=== PATIENT | male | born 1990 | race Caucasian/White ===

== ENCOUNTER 2016-08-16 20:48 | Outpatient (CLI) ==
[2016-06-02 03:43] VITALS: BMI 25.7
== END 2016-08-16 20:49 ==
LOC: AMBL 20:48
PROVIDERS: ATTEND Family Medicine
DX: R45.851 Suicidal ideations (principal); F41.9 Anxiety disorder, unspecified

== ENCOUNTER 2016-09-01 22:27 | Outpatient (CLI) ==
[2016-09-01 23:06] VITALS: BMI 23.1
== END 2016-09-01 22:28 ==
LOC: AMBL 22:27
PROVIDERS: ATTEND Internal Medicine Geriatric Medicine
DX: R45.851 Suicidal ideations (principal); F10.10 Alcohol abuse, uncomplicated; R56.9 Unspecified convulsions; R00.0 Tachycardia, unspecified

== ENCOUNTER 2016-09-01 22:41 | Emergency (ER) ==
--- NOTE | 2016-09-01 23:01 | ED.PDOC ---
General ED Provider: Dr. SHAHANA CARLOS Chief Complaint: Seizure Stated Complaint: Patient is a 25 year old male who comes to the ER by EMS after he called them wanting to go to Psychiatric because has been depressed and states he is suicidal but with no plan. He states he is no longer suicidal just wants to talk to the counsellor. He has had recent deaths in his family. while on the way there he was noted to have a generalized tonic clonic seizure that lasted for one minute and the stopped. He was thus re-routed to to [place] Time Seen by Physician: 23:52 Mode of Arrival: Ambulance Information Source: Patient, Family Exam Limitations: No limitations Nursing and Triage Documentation Reviewed and Agree: Yes Review of Systems - Review Of Systems Constitutional: Reports: No symptoms Eyes: Reports: No symptoms Ears, Nose, Mouth, Throat: Reports: No symptoms Respiratory: Reports: No symptoms Cardiac: Reports: No symptoms GI: Reports: No symptoms : Reports: No symptoms Musculoskeletal: Reports: No symptoms Skin: Reports: No symptoms Neurological: Reports: Anxiety, Depressed, Emotional problems Endocrine: Reports: No symptoms Hematologic/Lymphatic: Reports: No symptoms All Other Systems: Reviewed and Negative Past Medical History - Past Medical History Previously Healthy: Yes Endocrine: Reports: None Cardiovascular: Reports: None Respiratory: Reports: Asthma Hematological: Reports: None Gastrointestinal: Reports: None Genitourinary: Reports: None Neuro/Psych: Reports: Seizure, Anxiety, Depression, Bipolar Disorder, Schizophrenia Musculoskeletal: Reports: None Cancer: Reports: None Other Pertinent Past Medical History: Alcohol abuse. - Surgical History General Surgical History: Reports: Unknown - Family History Family History: Reports: Unknown - Social History Smoking Status: Current every day smoker Hx Substance Use: (UNKNOWN) Alcohol Screening: Occasionally Physical Exam - Physical Exam Appearance: Well-appearing, No pain distress, Well-nourished Eyes: CHAU, EOMI, Conjunctiva clear ENT: Ears normal, Nose normal, Oropharynx normal Neck: Supple Respiratory: Airway patent, Breath sounds clear, Breath sounds equal, Respirations nonlabored Cardiovascular: RRR, Pulses normal, No rub, No murmur GI/: Soft, Nontender, No masses, Bowel sounds normal, No Organomegaly Musculoskeletal: Normal strength, ROM intact, No edema, No calf tenderness Skin: Warm, Dry, Normal color Neurological: Sensation intact, Motor intact, Reflexes intact, Cranial nerves intact, Alert, Oriented Psychiatric: Anxious, Depressed Re-Evaluation - Re-Evaluation Time of Re-Evaluation: 00:13 Status: Improved Vital Signs Stable: Yes (RR 20) Critical Care Note - Critical Care Note Total Time (mins): 0 Course - Course Hematology/Chemistry: 09/01/16 22:51 09/01/16 22:51 Orders, Labs, Meds: Lab Review 09/01/16 09/01/16 22:51 23:28 WBC 15.61 H RBC 5.78 Hgb 16.2 Hct 48.0 MCV 83.0 MCH 28.0 MCHC 33.8 RDW Coeff of Rian 12.8 Plt Count 248 Immature Gran % (Auto) 1.8 Neut % (Auto) 69.2 Lymph % (Auto) 21.9 [place] % (Auto) 6.0 Eos % (Auto) 0.6 Baso % (Auto) 0.5 Immature Gran # (Auto) 0.3 Neut # 10.8 H Lymph # 3.4 Isabel[place] # 0.9 Eos # 0.1 Baso # 0.1 Sodium 143 Potassium 3.6 Chloride 108 H Carbon Dioxide 22 Anion Gap 16.6 BUN 13 Creatinine 1.10 Estimated GFR (MDRD) 83.00 BUN/Creatinine Ratio 11.81 Glucose 95 Calcium 9.1 Total Bilirubin 0.23 AST 28 ALT 37 Alkaline Phosphatase 93 Total Protein 7.7 Albumin 4.2 Globulin 3.5 Albumin/Globulin Ratio 1.20 Urine Color Yellow Urine Clarity Clear Urine pH 5.0 Ur Specific [place] 1.010 Urine Protein Trace Urine Glucose (UA) Negative Urine Ketones Negative Urine Blood Negative Urine Nitrite Negative Urine Bilirubin Negative Urine Urobilinogen 0.2 Ur Leukocyte Esterase Trace Urine Microscopic WBC 10-20 Ur Squamous Epith Cells 0-2 Amorphous Sediment 2+ Urine Bacteria Trace Granular Casts 0-2 Fine Granular Casts 0-2 Salicylate Level mg/dL < 5.0 Urine Opiates Screen Negative Ur Oxycodone Screen Negative Urine Methadone Screen Negative Ur Propoxyphene Screen Negative Acetaminophen < 3 L Ur Barbiturates Screen Negative U Tricyclic Antidepress Negative Ur Phencyclidine Scrn Negative Ur Amphetamine Screen Negative U Methamphetamines Scrn Negative U Benzodiazepines Scrn Negative Urine Cocaine Screen Negative U Cannabinoids Screen Positive Plasma/Serum Alcohol 55.3 Orders Category Date Time Status EKG-(ED ONLY) Stat CARDIO 09/01/16 22:49 Completed ED SERVICE MECHANIC APPLIED ONCE EMERGENCY 09/01/16 22:49 Active ACETAMINOPHEN Stat LAB 09/01/16 22:51 Completed BLOOD ALCOHOL Stat LAB 09/01/16 22:51 Completed CBC W/ AUTO DIFF Stat LAB 09/01/16 22:51 Completed COMPREHENSIVE METABOLIC PANEL Stat LAB 09/01/16 22:51 Completed DRUG SCREEN, URINE, RAPID Stat LAB 09/01/16 23:28 Completed SALICYLATE Stat LAB 09/01/16 22:51 Completed URINALYSIS C & S IF INDICATED Stat LAB 09/01/16 23:28 Completed Sodium Chloride 0.9% [Sodium Chloride] 1,000 ml MEDS 09/01/16 23:50 Discontinued IV BOLUS Sodium Chloride 0.9% [Sodium Chloride] 1,000 ml MEDS 09/01/16 23:51 Discontinued IV BOLUS Vitamin B-1 Inj [Thiamine] MEDS 09/01/16 23:50 Discontinued 100 mg IVP ONCE STA Vitamin B-1 Inj [Thiamine] 100 mg MEDS 09/01/16 23:54 Discontinued 0.9 % Sodium Chloride [Sodium Chloride] [address] HEAD W/O CONTRAST Stat RADS 09/01/16 23:23 Completed Medications Discontinued Medications Generic Name Dose Route Start Last Admin Trade Name Freq PRN Reason Stop Dose Admin Sodium Chloride 1,000 mls @ 1,000 mls/hr 09/01/16 23:50 09/01/16 23:55 Sodium Chloride IV 09/02/16 00:49 1,000 mls/hr BOLUS STA Administration Sodium Chloride 1,000 mls @ 1,000 mls/hr 09/01/16 23:51 09/02/16 00:57 Sodium Chloride IV 09/02/16 00:50 1,000 mls/hr BOLUS STA Administration Thiamine HCl 100 mg/ Sodium 51 mls @ 100 mls/hr 09/01/16 23:54 09/02/16 00:58 Chloride IV 09/02/16 00:24 100 mls/hr ONCE STA Administration Thiamine HCl 100 mg 09/01/16 23:50 09/01/16 23:58 Thiamine IVP 09/01/16 23:51 100 mg ONCE STA Administration Vital Signs: Temp Pulse Resp BP Pulse Ox 09/01/16 22:42 100.2 F H 93 H 44 H 154/98 H 97 Departure - Departure Time of Disposition: 02:28 Disposition: HOME SELF-CARE Discharge Problem: Seizure, Suicidal ideation, Cannabis abuse Depression, major Qualifiers: Major depression recurrence: recurrent Active/Remission status: currently active Major depression episode severity: moderate Qualifier Code: (F33.1) Major depressive disorder, recurrent, moderate Instructions: Depression (ED), Recurrent Seizures in Adults (ED), Abuse of Alcohol (ED), Cannabis Abuse (ED) Condition: Stable Pt referred to PMD for follow-up: Yes Additional Instructions: Follow up with PCP for seizure medications. Quit drinking Alcohol as it may be the cause of your seizers Follow up with your counsellor in the morning. Allergies/Adverse Reactions: Allergies amoxicillin [Amoxicillin] Adverse Reaction (Verified 09/01/16 23:05) Home Medications: Ambulatory Orders Quetiapine Fumarate [Seroquel] 25 mg PO BID 09/01/16 Trazodone HCl 100 mg PO BEDTIME 09/01/16 Disposition Discussed With: Patient, Family Psychological Complaint Exam - Psychiatric Complaint/Exam Patient Complains Of: Present: Depression, Suicidal thoughts (but no plan ) Onset/Duration: constant Symptoms Are: Resolved Initial Severity: Mild Current Severity: Mild Character: Present: Depressed, Anxious Aggravating: Reports: Alcohol use, Drug use Associated Signs And Symptoms: Denies: Hostile, Confused, Hallucinating, Paranoid behavior, Sleep disturbance, Appetite change Related History: Reports: Suicidal thoughts, Recent stressors, Drug ingestion. Denies: Suicidal plan, Suicidal gestures, Homicidal thoughts, Homicidal plan, Homicidal gestures, Prior attempts Completed Suicide Risk Factors: None Patient Accompanied By: Family Patient In Custody Of Police: No Social Withdrawal Present: No Social Isolation Present: No Prior Suicide Attempt: No Injury From Prior Suicide Attempt: No Related Surgical History: Reports: None Patient Uncooperative For Exam: No Mood: Present: Anxious Appearance: Present: Clean Thought Process: Present: Logical Insight: Present: Good Memory: Intact Judgement: Normal Danger To Others: No Patient Medically Stable For: Psych evaluation Differential Diagnoses: Anxiety, ETOH Intoxication
[2016-09-01 23:02] LABS: BASOPHILS # (AUTO) 0.1 K/uL (0-0.2); BASOPHILS % (AUTO) 0.5 % (0.0-3.0); EOSINOPHILS # (AUTO) 0.1 K/ul (0.0-0.7); EOSINOPHILS % (AUTO) 0.6 % (0.0-7.0); HEMOGLOBIN 16.2 g/dl (14.0-18.0); IMMATURE GRANULOCYTE % (AUTO) 1.8 % (0.0-5.0); LYMPHOCYTES # (AUTO) 3.4 K/uL (0.60-3.4); LYMPHOCYTES % (AUTO) 21.9 (10.0-50.0); MEAN CORPUSCULAR HGB CONC 33.8 (31.8-35.4); MONOCYTES # (AUTO) 0.9 K/uL (0.4-2.0); NEUTROPHILS # (AUTO) 10.8 K/ul (2.0-6.9); NEUTROPHILS % (AUTO) 69.2; PLATELET COUNT 248 10^3/uL (140-440); RED BLOOD COUNT 5.78 10^6/ul (4.70-6.10); WHITE BLOOD COUNT 15.61 K/ul (4.2-10.2)
[2016-09-01 23:06] VITALS: BP 154/98; TEMP 100.2; BMI 23.1
[2016-09-01 23:16] LABS: ACETAMINOPHEN < 3 ug/ml (10-30); ALANINE AMINOTRANSFERASE 37 U/L (12-78); ALBUMIN 4.2 g/dL (3.4-5.0); ALKALINE PHOSPHATASE 93 U/L (50-136); ANION GAP 16.6; ASPARTATE AMINO TRANSFERASE 28 U/L (15-37); BILIRUBIN,TOTAL 0.23 mg/dL (0.00-1.20); BLOOD UREA NITROGEN 13 mg/dL (7-18); BUN/CREATININE RATIO 11.81; CALCIUM 9.1 mg/dL (8.2-10.2); CARBON DIOXIDE 22 mmol/L (21-32); CHLORIDE 108 mmol/L (98-107); GLUCOSE 95 mg/dL (70-100); POTASSIUM 3.6 mmol/L (3.5-5.1); SALICYLATE < 5.0 mg/dL (2.8-20.0); SODIUM 143 mmol/L (136-145); TOTAL PROTEIN 7.7 g/dL (6.4-8.2)
[2016-09-01 23:42] LABS: BILIRUBIN,URINE Negative (NEGATIVE); KETONES,URINE Negative (NEGATIVE); LEUKOCYTE ESTERASE ,URINE Trace (NEGATIVE); NITRITE,URINE Negative (NEGATIVE); PROTEIN,URINE Trace (NEGATIVE); URINE, BLOOD Negative (NEGATIVE)
--- NOTE | 2016-09-01 23:49 | CT ---
EXAM: CT head without contrast. HISTORY: Seizure. PROCEDURE: Contiguous axial CT images of the head without contrast with coronal and sagittal reform ats. FINDINGS: The ventricles and basal cisterns are normal in size and configuration. No evidence of mass or midline shift. No intracranial hemorrhage or evidence of large vessel infarct. No extra-ax ial fluid collection. The paranasal sinuses and mastoid air cells are well-aerated. Impression: Negative CT of the head.
[2016-09-01] MEDS ORDERED: SODIUM CHLORIDE 1,000 ML IV STA ×2 (23:50→23:51)
[2016-09-01] MEDS ORDERED: THIAMINE IVP STA (23:50)
[2016-09-01 23:52] LABS: COCAIN SCREEN,URINE NEGATIVE (NEGATIVE)
[2016-09-01] MEDS ORDERED: THIAMINE 100 MG in SODIUM CHLORIDE 50 ML IV STA (23:54)
[2016-09-01 23:56] LABS: ADD URINE MICROSCOPIC YES
[2016-09-01 23:58] LABS: BACTERIA,URINE TRACE (NOT PRESENT); GRANULAR CASTS,URINE 0-2 (NOT PRESENT)
== END 2016-09-02 02:30 | disposition home or self-care (01) ==
LOC: ED 22:41
DX: R56.9 Unspecified convulsions (principal); R45.851 Suicidal ideations; F33.1 Major depressive disorder, recurrent, moderate; F10.10 Alcohol abuse, uncomplicated; F12.10 Cannabis abuse, uncomplicated; F17.210 Nicotine dependence, cigarettes, uncomplicated
CPT/HCPCS: 36415; 80053; 80306; 80307; 81001; 85025; 87086; 93005; 93010; 96361; 96374; 99285

== ENCOUNTER 2017-01-19 13:20 | Emergency (ER) ==
[2017-01-19 13:33] VITALS: BP 134/79; TEMP 99.2; BMI 25.6
--- NOTE | 2017-01-19 13:43 | ED.PDOC ---
General ED Provider: Dr. JOSTIN STEPHENS JR Chief Complaint: Back Pain Stated Complaint: had been [place] on tuesday then developed lower back pain-- was able to finish work but next day pain worsened and has cont since--no hx prior pain/injury- was carrying shingles stepped wrong on ladder now with gonzalez and numbness into left thigh[ End ]5 days 99.2 68 16 98% 03/22 Time Seen by Physician: 13:40 Mode of Arrival: Walk-In Information Source: Patient Exam Limitations: No limitations Nursing and Triage Documentation Reviewed and Agree: No Review of Systems - Review Of Systems Constitutional: Reports: No symptoms Eyes: Reports: No symptoms Ears, Nose, Mouth, Throat: Reports: No symptoms Respiratory: Reports: No symptoms Cardiac: Reports: No symptoms GI: Reports: No symptoms : Reports: No symptoms Musculoskeletal: Reports: Back pain, Muscle pain Neurological: Reports: Numbness, Weakness, Other (sciatica) All Other Systems: Other Past Medical History - Past Medical History Previously Healthy: Yes Endocrine: Reports: None Cardiovascular: Reports: None Respiratory: Reports: Asthma Hematological: Reports: None Gastrointestinal: Reports: None Genitourinary: Reports: None Neuro/Psych: Reports: Seizure, Anxiety, Depression, Bipolar Disorder, Schizophrenia (I'm doing better without the medications from Dr Cohen) Musculoskeletal: Reports: None Cancer: Reports: None Other Pertinent Past Medical History: Alcohol abuse - Surgical History General Surgical History: Reports: Unknown - Family History Family History: Reports: Unknown - Social History Smoking Status: Current every day smoker Hx Substance Use: (UNKNOWN) Alcohol Screening: None Physical Exam - Physical Exam Appearance: Well-appearing, Thin Pain Distress: Moderate Neck: Supple Respiratory: Airway patent Musculoskeletal: Normal strength, ROM intact, No edema, No calf tenderness Skin: Warm, Dry, Normal color Neurological: Sensation intact, Motor intact, Reflexes intact, Cranial nerves intact, Alert, Oriented Interpretation - Radiology Interpretation Radiology Interpretation By: Radiologist Radiology Results: Negative Exam Interpreted: CT Scan (new schmorls and disc bulging consider MRI) Critical Care Note - Critical Care Note Total Time (mins): 0 Course - Course Orders, Labs, Meds: Lab Review 01/19/17 14:05 Urine Color Yellow Urine Clarity Clear Urine pH 6.0 Ur Specific [place] <=1.005 Urine Protein Negative Urine Glucose (UA) Negative Urine Ketones Negative Urine Blood Negative Urine Nitrite Negative Urine Bilirubin Negative Urine Urobilinogen 0.2 Ur Leukocyte Esterase Negative Orders Category Date Time Status UA [URINALYSIS C & S IF INDICATED] Stat LAB 01/19/17 14:05 Completed Ketorolac Tromethamine [Toradol] MEDS 01/19/17 13:40 Discontinued 60 mg IM ONCE STA Orphenadrine Citrate [Norflex] MEDS 01/19/17 13:40 Discontinued 60 mg IM ONCE STA CT LUMBAR SPINE W/O CONTRAST Stat RADS 01/19/17 13:41 Completed Medications Discontinued Medications Generic Name Dose Route Start Last Admin Trade Name Freq PRN Reason Stop Dose Admin Ketorolac Tromethamine 60 mg 01/19/17 13:40 01/19/17 14:00 Toradol IM 01/19/17 13:41 60 mg ONCE STA Administration Orphenadrine Citrate 60 mg 01/19/17 13:40 01/19/17 14:01 Norflex IM 01/19/17 13:41 60 mg ONCE STA Administration Vital Signs: Temp Pulse Resp BP Pulse Ox 01/19/17 13:20 99.2 F 68 16 134/79 98 Departure - Departure Time of Disposition: 14:46 Disposition: HOME SELF-CARE Discharge Problem: Low back strain, Back injuries Instructions: Low Back Strain (ED), Core Strengthening Exercises (ED) Condition: Good Pt referred to PMD for follow-up: Yes Additional Instructions: lift with knees avoid lifting more than half bod weight usual lifting should average less than 1/4 body weight follow up 1-2 weeks recheck sooner if not improved return if fever over 101.0 if worsening may use Naprosyn or Toradol(not together) for pain Prescriptions: Ketorolac Tromethamine [Toradol] 10 mg PO QID PRN #20 tablet PRN Reason: PAIN Allergies/Adverse Reactions: Allergies amoxicillin [Amoxicillin] Adverse Reaction (Verified 01/19/17 13:27) Home Medications: Ambulatory Orders Ketorolac Tromethamine [Toradol] 10 mg PO QID PRN #20 tablet 01/19/17
[2017-01-19] MEDS: TORADOL IM STA (14:00)
[2017-01-19] MEDS: NORFLEX IM STA (14:01)
--- NOTE | 2017-01-19 14:14 | CT ---
EXAM: CT LUMBAR SPINE HISTORY: Acute back pain, low grade fever TECHNIQUE: CT lumbar spine without contrast. 3-mm axial sections. Coronal and sagittal reformatio ns. COMPARISON: No comparison CT lumbar spine. Some comparison may be made to prior CT abdomen and pel vis dated 06/12/2007 FINDINGS: No fracture, loss of vertebral body height or spondylolisthesis is identified. There are mild Schmo rl's nodes at most lumbar levels, many of which are new since prior exam of 2006. Mild broad-based disc bulging is seen throughout the spine probably most apparent L4/L5 and L5/S1. The pedicles are congenitally short. There is no paraspinal fluid collection or obvious inflammatory process. IMPRESSION: 1. Early degenerative changes of the spine unusual for age. 2. If spinal infection is of clinical concern, consider correlation with MRI.
[2017-01-19 14:16] LABS: BILIRUBIN,URINE Negative (NEGATIVE); KETONES,URINE Negative (NEGATIVE); LEUKOCYTE ESTERASE ,URINE Negative (NEGATIVE); NITRITE,URINE Negative (NEGATIVE); PROTEIN,URINE Negative (NEGATIVE); URINE, BLOOD Negative (NEGATIVE)
[2017-01-19 14:35] LABS: ADD URINE MICROSCOPIC NO
== END 2017-01-19 14:57 | disposition home or self-care (01) ==
LOC: ED 13:20
DX: S39.012A Strain of muscle, fascia and tendon of lower back, initial encounter (principal); X50.9XXA Other and unspecified overexertion or strenuous movements or postures, initial encounter; F17.210 Nicotine dependence, cigarettes, uncomplicated
CPT/HCPCS: 81001; 96372; 99282

== ENCOUNTER 2017-04-06 14:20 | Emergency (ER) ==
[2017-04-06 14:23] VITALS: BP 141/76; TEMP 98.2; BMI 24.7
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
--- NOTE | 2017-04-06 15:26 | CT ---
Exam: CT of the chest without contrast History: Trauma Technique: [address] of the chest FINDINGS: The lung windows show no significant pulmonary parenchymal abnormalities. Granulomatous ca lcifications on the left. No pleural fluid or pneumothorax. The heart, great vessels and pericardium are unremarkable by noncontrast CT. No acute findings of the chest wall soft tissues or bony thorax . No acute findings of the upper abdomen. Impression: 1. No acute findings of the chest
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
== END 2017-04-06 15:44 | disposition home or self-care (01) ==
LOC: ED 14:20
DX: S29.9XXA Unspecified injury of thorax, initial encounter (principal); W50.0XXA Accidental hit or strike by another person, initial encounter; F17.210 Nicotine dependence, cigarettes, uncomplicated
CPT/HCPCS: 99282

== ENCOUNTER 2017-05-06 01:13 | Emergency (ER) ==
[2017-05-06 01:34] VITALS: BP 143/92
[2017-05-06 01:37] VITALS: TEMP 99.3
[2017-05-06] MEDS ORDERED: ATIVAN IVP PRN (01:56)
[2017-05-06 02:08] LABS: BASOPHILS # (AUTO) 0.1 K/uL (0-0.2); BASOPHILS % (AUTO) 0.3 % (0.0-3.0); EOSINOPHILS # (AUTO) 0.1 K/ul (0.0-0.7); EOSINOPHILS % (AUTO) 0.4 % (0.0-7.0); HEMATOCRIT 44.3 % (42.0-52.0); IMMATURE GRANULOCYTE % (AUTO) 0.4 % (0.0-5.0); LYMPHOCYTES # (AUTO) 1.9 K/uL (0.60-3.4); LYMPHOCYTES % (AUTO) 9.9 (10.0-50.0); MEAN CORPUSCULAR HEMOGLOBIN 27.8 pg (27.0-31.0); MEAN CORPUSCULAR HGB CONC 33.9 (31.8-35.4); MONOCYTES # (AUTO) 1.6 K/uL (0.4-2.0); MONOCYTES % (AUTO) 8.2 (0-10); NEUTROPHILS # (AUTO) 15.5 K/ul (2.0-6.9); NEUTROPHILS % (AUTO) 80.8; PLATELET COUNT 254 10^3/uL (140-440); WHITE BLOOD COUNT 19.12 K/ul (4.2-10.2)
[2017-05-06 02:48] LABS: ACETAMINOPHEN 6 ug/ml (10-30); ALANINE AMINOTRANSFERASE 32 U/L (12-78); ALBUMIN 4.1 g/dL (3.4-5.0); ALBUMIN/GLOBULIN RATIO 1.37; ALKALINE PHOSPHATASE 78 U/L (50-136); ANION GAP 12.6; ASPARTATE AMINO TRANSFERASE 21 U/L (15-37); BILIRUBIN,TOTAL 0.64 mg/dL (0.00-1.20); BLOOD UREA NITROGEN 16 mg/dL (7-18); BUN/CREATININE RATIO 13.11; CALCIUM 9.5 mg/dL (8.2-10.2); CARBON DIOXIDE 27 mmol/L (21-32); CHLORIDE 104 mmol/L (98-107); CREATININE 1.22 mg/dL (0.60-1.10); GLUCOSE 127 mg/dL (70-100); POTASSIUM 3.6 mmol/L (3.5-5.1); SODIUM 140 mmol/L (136-145); TOTAL PROTEIN 7.1 g/dL (6.4-8.2)
--- NOTE | 2017-05-06 04:02 | CT ---
EXAM: CT scan brain without contrast HISTORY: Possible seizure COMPARISON: CT scan brain 09/01/2016 FINDINGS: Contiguous axial images were obtained from the skull base to the convexities without contr ast utilizing 5-mm collimation. Sagittal and coronal reconstructions were imaged and reviewed. The v entricles and CSF spaces are within normal limits. No acute intracranial findings. The visualized p aranasal sinuses and mastoid air cells are clear. IMPRESSION: No acute intracranial findings.
[2017-05-06] MEDS ORDERED: SODIUM CHLORIDE 1,000 ML IV STA (05:58)
--- NOTE | 2017-05-06 06:02 | ED.PDOC ---
General Stated Complaint: i was smoking meth tonight because i was depressed about the of my son Time Seen by Physician: 01:20 Mode of Arrival: Walk-In Information Source: Patient, Police Exam Limitations: No limitations Nursing and Triage Documentation Reviewed and Agree: Yes <DODIEISAAC - Last Filed: 05/06/17 05:59> <MERRY BEAULIEU - Last Filed: 05/06/17 12:22> ED Provider: Dr. MERRY BEAULIEU Chief Complaint: Behavioral Complaint Psychological Complaint Exam - Psychiatric Complaint/Exam Patient Complains Of: Present: Depression, Suicidal thoughts Onset/Duration: tonight Symptoms Are: Still present Timing: Intermittent Initial Severity: Mild Current Severity: Moderate Character: Present: Depressed, Anxious, Frustrated Aggravating: Reports: Recent stress, Drug use Associated Signs And Symptoms: Reports: Sleep disturbance, Appetite change. Denies: Hostile, Confused, Hallucinating, Paranoid behavior Related History: Reports: Suicidal thoughts Completed Suicide Risk Factors: Male, Patient In Custody Of Police: No Social Withdrawal Present: No Social Isolation Present: No Prior Suicide Attempt: No Injury From Prior Suicide Attempt: No Related Surgical History: Reports: None Patient Uncooperative For Exam: No Mood: Present: Agitated, Anxious Appearance: Present: Clean Thought Process: Present: Illogical Insight: Present: Poor Memory: Intact Judgement: Impaired Danger To Others: No Patient Medically Stable For: Psych evaluation, Referral, Transfer Differential Diagnoses: Anxiety, Depression, ETOH Intoxication, Other <DODIEISAAC Filed: 05/06/17 05:59> Review of Systems - Review Of Systems Constitutional: Reports: No symptoms Eyes: Reports: No symptoms Ears, Nose, Mouth, Throat: Reports: No symptoms Respiratory: Reports: No symptoms Cardiac: Reports: No symptoms GI: Reports: No symptoms : Reports: No symptoms Musculoskeletal: Reports: No symptoms Skin: Reports: No symptoms Neurological: Reports: Anxiety, Depressed, Emotional problems Endocrine: Reports: No symptoms Hematologic/Lymphatic: Reports: No symptoms All Other Systems: Reviewed and Negative <DODIEISAAC Last Filed: 05/06/17 05:59> Past Medical History - Past Medical History Previously Healthy: Yes Endocrine: Reports: None Cardiovascular: Reports: None Respiratory: Reports: Asthma Hematological: Reports: None Gastrointestinal: Reports: None Genitourinary: Reports: None Neuro/Psych: Reports: Seizure, Anxiety, Depression, Bipolar Disorder, Schizophrenia (I'm doing better without the medications from Dr Cohen) Musculoskeletal: Reports: None Cancer: Reports: None Other Pertinent Past Medical History: Alcohol abuse - Surgical History General Surgical History: Reports: Unknown - Family History Family History: Reports: Unknown - Social History Smoking Status: Current every day smoker, Heavy tobacco smoker Hx Substance Use: Yes ("WEED, PILLS, METH") Alcohol Screening: Occasionally Lives: With family - Immunizations Tetanus Shot up to Date: Yes <ISAAC STOLL Last Filed: 05/06/17 05:59> Physical Exam - Physical Exam Appearance: Well-appearing, No pain distress, Well-nourished Eyes: CHAU, EOMI, Conjunctiva clear ENT: Ears normal, Nose normal, Oropharynx normal Neck: Supple Respiratory: Airway patent, Breath sounds clear, Breath sounds equal, Respirations nonlabored Cardiovascular: RRR, Pulses normal, No rub, No murmur GI/: Soft, Nontender, No masses, Bowel sounds normal, No Organomegaly Musculoskeletal: Normal strength Skin: Warm Neurological: Sensation intact, Alert, Oriented Psychiatric: Affect appropriate <DODIEISAAC Last Filed: 05/06/17 05:59> Interpretation - Radiology Interpretation Radiology Interpretation By: Radiologist Radiology Results: Negative Exam Interpreted: CT Scan <DODIEISAAC Last Filed: 05/06/17 05:59> Physician Notification - Case Discussed Physician Notified: dr beaulieu 7am Time of Notification: 07:00 <ISAAC STOLL Last Filed: 05/06/17 05:59> Critical Care Note - Critical Care Note Total Time (mins): 0 <MERRY BEAULIEU - Last Filed: 05/06/17 12:22> Course - Course Hematology/Chemistry: 05/06/17 02:05 05/06/17 02:05 <ISAAC STOLL - Last Filed: 05/06/17 05:59> - Course Hematology/Chemistry: 05/06/17 02:05 05/06/17 02:05 <MERRY BEAULIEU - Last Filed: 05/06/17 12:22> - Course Orders, Labs, Meds: Lab Review 05/06/17 05/06/17 05/06/17 02:05 02:05 05:57 WBC 19.12 H RBC 5.40 Hgb 15.0 Hct 44.3 MCV 82.0 MCH 27.8 MCHC 33.9 RDW Coeff of Rian 12.7 Plt Count 254 Immature Gran % (Auto) 0.4 Neut % (Auto) 80.8 Lymph % (Auto) 9.9 L [place] % (Auto) 8.2 Eos % (Auto) 0.4 Baso % (Auto) 0.3 Immature Gran # (Auto) 0.1 Neut # 15.5 H Lymph # 1.9 [place] # 1.6 Eos # 0.1 Baso # 0.1 Sodium 140 Potassium 3.6 Chloride 104 Carbon Dioxide 27 Anion Gap 12.6 BUN 16 Creatinine 1.22 H Estimated GFR (MDRD) 73.00 BUN/Creatinine Ratio 13.11 Glucose 127 H Calcium 9.5 Total Bilirubin 0.64 AST 21 ALT 32 Alkaline Phosphatase 78 Total Protein 7.1 Albumin 4.1 Globulin 3.0 Albumin/Globulin Ratio 1.37 TSH 1.998 Free T4 1.08 Urine Color Yellow Urine Clarity Clear Urine pH 5.5 Ur Specific [place] 1.025 Urine Protein Trace Urine Glucose (UA) Negative Urine Ketones Negative Urine Blood Trace-intact Urine Nitrite Negative Urine Bilirubin Negative Urine Urobilinogen 0.2 Ur Leukocyte Esterase Negative Urine Microscopic RBC 2-5 Urine Microscopic WBC 2-5 Ur Squamous Epith Cells Not present Ur Renal Epithelial Cell 0-2 Amorphous Sediment Trace Hyaline Casts 0-2 Urine Mucus Trace Urine Opiates Screen Ur Oxycodone Screen Urine Methadone Screen Ur Propoxyphene Screen Acetaminophen 6 L Ur Barbiturates Screen U Tricyclic Antidepress Ur Phencyclidine Scrn Ur Amphetamine Screen U Methamphetamines Scrn U Benzodiazepines Scrn Urine Cocaine Screen U Cannabinoids Screen Plasma/Serum Alcohol < 10.0 05/06/17 05:57 WBC RBC Hgb Hct MCV MCH MCHC RDW Coeff of Rian Plt Count Immature Gran % (Auto) Neut % (Auto) Lymph % (Auto) [place] % (Auto) Eos % (Auto) Baso % (Auto) Immature Gran # (Auto) Neut # Lymph # [place] # Eos # Baso # Sodium Potassium Chloride Carbon Dioxide Anion Gap BUN Creatinine Estimated GFR (MDRD) BUN/Creatinine Ratio Glucose Calcium Total Bilirubin AST ALT Alkaline Phosphatase Total Protein Albumin Globulin Albumin/Globulin Ratio TSH Free T4 Urine Color Urine Clarity Urine pH Ur Specific [place] Urine Protein Urine Glucose (UA) Urine Ketones Urine Blood Urine Nitrite Urine Bilirubin Urine Urobilinogen Ur Leukocyte Esterase Urine Microscopic RBC Urine Microscopic WBC Ur Squamous Epith Cells Ur Renal Epithelial Cell Amorphous Sediment Hyaline Casts Urine Mucus Urine Opiates Screen Negative Ur Oxycodone Screen Negative Urine Methadone Screen Negative Ur Propoxyphene Screen Negative Acetaminophen Ur Barbiturates Screen Negative U Tricyclic Antidepress Negative Ur Phencyclidine Scrn Negative Ur Amphetamine Screen Positive U Methamphetamines Scrn Positive U Benzodiazepines Scrn Negative Urine Cocaine Screen Negative U Cannabinoids Screen Positive Plasma/Serum Alcohol Orders Category Date Time Status EKG-(ED ONLY) Stat CARDIO 05/06/17 01:54 Completed Rn Intake [ED RADIOLOGICAL EQUIPMENT SPECIALIST APPLIED] .ONCE EMERGENCY 05/06/17 01:55 Active IV [ED IV/MEDIPORT/POWERPORT] .ONCE EMERGENCY 05/06/17 01:56 Active Mental Health Consult [ED MENTAL HEALTH CONSULT] .ONCE EMERGENCY 05/06/17 01: 57 Active ACETAMINOPHEN Stat LAB 05/06/17 02:05 Completed BLOOD ALCOHOL Stat LAB 05/06/17 02:05 Completed CBC W/ AUTO DIFF Stat LAB 05/06/17 02:05 Completed COMPREHENSIVE METABOLIC PANEL Stat LAB 05/06/17 02:05 Completed FREE T4 (FREE THYROXINE) Stat LAB 05/06/17 02:05 Completed THYROID STIMULATING HORMONE Stat LAB 05/06/17 02:05 Completed URINALYSIS C & S IF INDICATED Stat LAB 05/06/17 05:57 Completed URINE DRUG SCREEN (RAPID FOR ED) [DRUG SCREEN, URINE, LAB 05/06/17 05:57 Completed RAPID] Stat 0.9 % Sodium Chloride [Saline Flush] MEDS 05/06/17 01:56 Active 1 syr IVF PRN PRN Lorazepam Inj [Ativan] MEDS 05/06/17 01:56 Active 1 mg IVP Q1HR PRN Sodium Chloride 0.9% [Sodium Chloride] 1,000 ml MEDS 05/06/17 05:[address] HEAD W/O CONTRAST Stat RADS 05/06/17 02:44 Completed Medications Generic Name Dose Route Start Last Admin Trade Name Freq PRN Reason Stop Dose Admin Lorazepam 1 mg 05/06/17 01:56 05/06/17 02:10 Ativan IVP 1 mg Q1HR PRN Administration Anxiety Sodium Chloride 1 syr 05/06/17 01:56 05/06/17 02:15 Saline Flush IVF 1 syr PRN PRN Administration To flush IV Discontinued Medications Generic Name Dose Route Start Last Admin Trade Name Freq PRN Reason Stop Dose Admin Sodium Chloride 1,000 mls @ 1,000 mls/hr 05/06/17 05:58 05/06/17 06:08 Sodium Chloride IV 05/06/17 06:57 1,000 mls/hr BOLUS STA Administration Vital Signs: Temp Pulse Resp BP Pulse Ox 05/06/17 01:19 99.3 F 104 H 24 143/92 H 95 Departure <ISAAC STOLL - Last Filed: 05/06/17 05:59> - Departure Time of Disposition: 12:20 Pt referred to PMD for follow-up: Yes Disposition Discussed With: Patient <MERRY BEAULIEU - Last Filed: 05/06/17 12:22> - Departure Disposition: TSF SHORT-TRM HOSP Discharge Problem: Suicidal ideation Instructions: Suicide Prevention for Adults (ED) Condition: Good Allergies/Adverse Reactions: Allergies amoxicillin [Amoxicillin] Adverse Reaction (Verified 05/06/17 01:34) Home Medications: Ambulatory Orders 1 [No Reported Medications] 04/06/17
[2017-05-06 06:03] LABS: BILIRUBIN,URINE Negative (NEGATIVE); KETONES,URINE Negative (NEGATIVE); LEUKOCYTE ESTERASE ,URINE Negative (NEGATIVE); NITRITE,URINE Negative (NEGATIVE); PH,URINE 5.5 (5-9); PROTEIN,URINE Trace (NEGATIVE); URINE, BLOOD Trace-intact (NEGATIVE)
[2017-05-06 06:05] LABS: ADD URINE MICROSCOPIC YES
[2017-05-06 06:12] LABS: COCAIN SCREEN,URINE NEGATIVE (NEGATIVE)
== END 2017-05-06 12:30 | disposition short-term general hospital (02) ==
LOC: ED 01:13
DX: R45.851 Suicidal ideations (principal); F17.210 Nicotine dependence, cigarettes, uncomplicated; F15.90 Other stimulant use, unspecified, uncomplicated
CPT/HCPCS: 36415; 80053; 80306; 80307; 81001; 84439; 84443; 85025; 93005; 93010; 96361; 96375; 99285

== ENCOUNTER 2017-05-06 12:32 | Outpatient (CLI) | END 2017-05-06 12:33 | LOC: AMBL 12:32 | PROVIDERS: ATTEND Internal Medicine | DX: T43.622A Poisoning by amphetamines, intentional self-harm, initial encounter (principal) ==

== ENCOUNTER 2017-11-09 18:12 | Emergency (ER) ==
[2017-11-09 18:24] VITALS: BP 171/70; TEMP 98.7; BMI 27.0
--- NOTE | 2017-11-09 18:34 | ED.PDOC ---
General ED Provider: Dr. MERRY JOHNS Chief Complaint: Hip Pain/Injury Stated Complaint: LEFT HIP PAIN Time Seen by Physician: 18:18 (NO INJURY REPORTED ) Mode of Arrival: Walk-In Information Source: Patient Exam Limitations: No limitations Nursing and Triage Documentation Reviewed and Agree: Yes Reviewed sepsis parameters & appropriate labs ordered?: Yes System Inflammatory Response Syndrome: Not Applicable Sepsis Protocol: For patient's 13 years and over: Temp is 96.8 and below OR 101 and greater Pulse >90 BPM Resp >20/minute Acutely Altered Mental Status Are patient's symptoms suggestive of a new infection, such as: -Pneumonia -Skin, Soft Tissue -Endocarditis -UTI -Bone, Joint Infection -Implantable Device -Acute Abdominal Infection -Wound Infection -Meningitis -Blood Stream Catheter Infection -Unknown System Inflammatory Response Syndrome: Not Applicable Musculoskeletal Complaint Exam - Hip/Pelvis Complaint/Exam Location of Pain: Reports: Left, Hip, Groin (PAIN ) Mechanism of Injury: Reports: No known trauma Onset/Duration: 4 DAYS AGO Symptoms Are: Still present Initial Severity: Moderate Current Severity: Moderate Location: Reports: Discrete (LEFT GROIN NO ABDOMINAL PAIN) Character: Reports: Aching, Spasmodic, Stiffness Aggravating: Reports: Movement, Weight bearing Alleviating: Reports: Rest, Position Associated Signs and Symptoms: Denies: Swelling, Redness, Bruising, Fever, Weakness, Dizziness, Syncope, Abdominal pain, Knee pain Able to Bear Weight: Yes (WALKING ED ) Septic Arthritis Risk Factors: Reports: None, Extremes of age Related Surgical History: Reports: None Pelvis Palpation: Stable Hip/Pelvis Findings: Absent: Extremity shortened, Swelling, Ecchymosis, Erythema , Warmth, Blisters Range of Motion Limited In: Present: Abduction, External rotation NV Bundle Intact Distal to Injury: Yes Differential Diagnoses: Arthritis, Bursitis, Sprain, Strain, Tenosynovitis Review of Systems - Review Of Systems Constitutional: Reports: No symptoms Eyes: Reports: No symptoms Ears, Nose, Mouth, Throat: Reports: No symptoms Respiratory: Reports: No symptoms Cardiac: Reports: No symptoms GI: Reports: No symptoms : Reports: No symptoms Musculoskeletal: Reports: Joint pain (LEFT HIP) Skin: Reports: No symptoms Neurological: Reports: No symptoms Endocrine: Reports: No symptoms Hematologic/Lymphatic: Reports: No symptoms All Other Systems: Reviewed and Negative Past Medical History - Past Medical History Previously Healthy: Yes Endocrine: Reports: None Cardiovascular: Reports: None Respiratory: Reports: Asthma Hematological: Reports: None Gastrointestinal: Reports: None Genitourinary: Reports: None Neuro/Psych: Reports: Seizure, Anxiety, Depression, Bipolar Disorder, Schizophrenia (I'm doing better without the medications from Dr Cohen) Musculoskeletal: Reports: None Cancer: Reports: None Other Pertinent Past Medical History: Alcohol abuse - Surgical History General Surgical History: Reports: Unknown - Family History Family History: Reports: Unknown - Social History Smoking Status: Current every day smoker, Heavy tobacco smoker Hx Substance Use: No Alcohol Screening: None Physical Exam - Physical Exam Appearance: Well-appearing (HIP GROSSLY WNL ), No pain distress, Well-nourished Eyes: CHAU, EOMI, Conjunctiva clear ENT: Ears normal, Nose normal, Oropharynx normal Respiratory: Airway patent, Breath sounds clear, Breath sounds equal, Respirations nonlabored Cardiovascular: RRR, Pulses normal, No rub, No murmur GI/: Soft, Nontender, No masses, Bowel sounds normal, No Organomegaly Musculoskeletal: Limited ROM (LEFT HIP) Skin: Warm, Dry, Normal color Neurological: Sensation intact, Motor intact, Reflexes intact, Cranial nerves intact, Alert, Oriented Psychiatric: Affect appropriate, Mood appropriate Physician Notification - Case Discussed Physician Notified: CHELSEY Time of Notification: 18:35 Critical Care Note - Critical Care Note Total Time (mins): 0 Course - Course Orders, Labs, Meds: Orders Category Date Time Status CRUTCHES [ED CRUTCHES] .ONCE EMERGENCY 11/09/17 18:[address] PELVIS W/O CONTRAST Stat RADS 11/09/17 18:30 Taken Vital Signs: Temp Pulse Resp BP Pulse Ox 11/09/17 18:13 98.7 F 80 16 171/70 H 91 L Departure - Departure Time of Disposition: 19:00 Disposition: HOME SELF-CARE Discharge Problem: Hip pain, Hip pain, left Instructions: Hip Pain (ED) Condition: Good Pt referred to PMD for follow-up: Yes IPMP verified?: No Additional Instructions: Please call your Family Physician as soon as possible to schedule a follow-up appointment. Prescriptions: Hydrocodone/Acetaminophen [[place] 10-325 Tablet] 1 each PO Q8HR #12 tablet Allergies/Adverse Reactions: Allergies amoxicillin [Amoxicillin] Adverse Reaction (Verified 11/09/17 18:20) Home Medications: Ambulatory Orders Hydrocodone/Acetaminophen [[place] 10-325 Tablet] 1 each PO Q8HR #12 tablet Disposition Discussed With: Patient
--- NOTE | 2017-11-09 19:18 | CT ---
Exam. CT scan of pelvis without contrast History. Pain, left hip Technique Axial scans acquired 3 mm slice thicknesses. MPR coronal and sagittal sequence completed FINDINGS Hip joints appear symmetric. Minimal narrowing of the superior right and left hip joint. There is n o sclerosis or lucency involving either femoral head. No osteochondral defect is seen. SI joints appear symmetric and unremarkable. There is no hernia seen. Small left inguinal nodes as large as 9.25 mm, right inguinal node 8.58 mm No pelvic mass is seen within limitations of a noncontrast CT. No free fluid the pelvis. Impression Hip joints appear symmetric with minimal central narrowing superior right and the left hip joint. No joint effusion. Minimal narrowing L5 S1 and L4-L5 disc space. Consider additional imaging lumbar spine as clinically indicated.
== END 2017-11-09 20:14 | disposition home or self-care (01) ==
LOC: ED 18:12
DX: M25.552 Pain in left hip (principal); F17.210 Nicotine dependence, cigarettes, uncomplicated
CPT/HCPCS: 99282

== ENCOUNTER 2017-11-22 22:27 | Emergency (ER) ==
[2017-11-22 22:39] VITALS: BP 148/86; TEMP 98.8; BMI 37.7
[2017-11-22] MEDS ORDERED: MORPHINE 4 MG/ML SYRINGE IM STA (22:46)
[2017-11-22] MEDS ORDERED: PHENERGAN 25 MG/ML VIAL IM STA (22:46)
--- NOTE | 2017-11-22 22:49 | ED.PDOC ---
General ED Provider: Dr. ISAAC JAMES-ER Chief Complaint: Foot Pain/Injury Stated Complaint: i kicked a shelf Time Seen by Physician: 22:47 Mode of Arrival: Walk-In Information Source: Patient Exam Limitations: No limitations Nursing and Triage Documentation Reviewed and Agree: Yes Reviewed sepsis parameters & appropriate labs ordered?: Yes System Inflammatory Response Syndrome: Not Applicable Sepsis Protocol: For patient's 13 years and over: Temp is 96.8 and below OR 101 and greater Pulse >90 BPM Resp >20/minute Acutely Altered Mental Status Are patient's symptoms suggestive of a new infection, such as: -Pneumonia -Skin, Soft Tissue -Endocarditis -UTI -Bone, Joint Infection -Implantable Device -Acute Abdominal Infection -Wound Infection -Meningitis -Blood Stream Catheter Infection -Unknown Musculoskeletal Complaint Exam - Ankle/Foot Complaint/Exam Location of Injury: Reports: Right, Ankle, Foot Mechanism of Injury: Reports: Trauma Onset/Duration: one hour Symptoms Are: Reports: Still present Onset of Pain: Reports: Immediate Initial Severity: Mild Current Severity: Moderate Location: Reports: Discrete Character: Reports: Dull, Aching Aggravating: Reports: Movement, Weight bearing Able to Bear Weight: No Associated Signs and Symptoms: Denies: Swelling, Redness, Bruising, Fever, Weakness, Numbness, Tingling Lower Extremity Findings: Present: Swelling, Tenderness, Limited range of motion Achilles Tendon Abnormality: No Tenderness: Present: Midfoot Differential Diagnosis: Contusion, Closed Fracture Review of Systems - Review Of Systems Constitutional: Reports: No symptoms Eyes: Reports: No symptoms Ears, Nose, Mouth, Throat: Reports: No symptoms Respiratory: Reports: No symptoms Cardiac: Reports: No symptoms GI: Reports: No symptoms : Reports: No symptoms Musculoskeletal: Reports: No symptoms Skin: Reports: No symptoms Neurological: Reports: No symptoms Endocrine: Reports: No symptoms Hematologic/Lymphatic: Reports: No symptoms All Other Systems: Reviewed and Negative Past Medical History - Past Medical History Previously Healthy: Yes Endocrine: Reports: None Cardiovascular: Reports: None Respiratory: Reports: Asthma Hematological: Reports: None Gastrointestinal: Reports: None Genitourinary: Reports: None Neuro/Psych: Reports: Seizure, Anxiety, Depression, Bipolar Disorder, Schizophrenia (I'm doing better without the medications from Dr Cohen) Musculoskeletal: Reports: None Cancer: Reports: None Other Pertinent Past Medical History: Alcohol abuse - Surgical History General Surgical History: Reports: Unknown - Family History Family History: Reports: Unknown - Social History Smoking Status: Current every day smoker, Heavy tobacco smoker Hx Substance Use: Yes ("WEED, PILLS, METH") Alcohol Screening: None - Immunizations Tetanus Shot up to Date: Yes Physical Exam - Physical Exam Appearance: Well-appearing, No pain distress, Well-nourished Eyes: CHAU ENT: Ears normal Neck: Supple Respiratory: Airway patent, Breath sounds clear, Breath sounds equal, Respirations nonlabored Cardiovascular: RRR, Pulses normal, No rub, No murmur GI/: Soft, Nontender, No masses, Bowel sounds normal, No Organomegaly Musculoskeletal: Limited ROM Skin: Warm Neurological: Sensation intact, Motor intact, Reflexes intact, Cranial nerves intact, Alert, Oriented Psychiatric: Affect appropriate, Mood appropriate, Anxious Interpretation - Radiology Interpretation Radiology Interpretation By: Radiologist Radiology Results: Negative Exam Interpreted: CT Scan Critical Care Note - Critical Care Note Total Time (mins): 0 Course - Course Orders, Labs, Meds: Orders Category Date Time Status ED CRUTCHES .ONCE EMERGENCY 11/22/17 23:59 Active Splint [ED SPLINT APPLICATION] .ONCE EMERGENCY 11/22/17 23:59 Active Ibuprofen [Motrin] MEDS 11/22/17 23:59 Discontinued 600 mg PO ONCE STA Morphine Sulfate [Morphine 4 mg/ml Syringe] MEDS 11/22/17 22:46 Discontinued 4 mg IM ONCE STA Promethazine HCl [Phenergan 25 mg/ml Vial] MEDS 11/22/17 22:46 Discontinued 25 mg IM ONCE STA ANKLE, RIGHT MIN 3 VIEWS Stat RADS 11/22/17 23:[address] ANKLE RIGHT WO CONTRAST Stat RADS 11/22/17 22:[address] FOOT RIGHT WITHOUT CONTRAST Stat RADS 11/22/17 22:45 Completed FOOT, RIGHT 3 VIEWS Stat RADS 11/22/17 23:32 Completed Medications Discontinued Medications Generic Name Dose Route Start Last Admin Trade Name Freq PRN Reason Stop Dose Admin Ibuprofen 600 mg 11/22/17 23:59 11/23/17 00:05 Motrin PO 11/23/17 00:00 600 mg ONCE STA Administration Morphine Sulfate 4 mg 11/22/17 22:46 11/22/17 23:08 Morphine 4 Mg/Ml Syringe IM 11/22/17 22:47 Not Given ONCE STA Promethazine HCl 25 mg 11/22/17 22:46 06/12/18 23:08 Phenergan 25 Mg/Ml Vial IM 11/22/17 22:47 Not Given ONCE STA Vital Signs: Temp Pulse Resp BP Pulse Ox 11/22/17 22:28 98.8 F 90 20 148/86 H 98 Departure - Departure Time of Disposition: 00:01 Disposition: HOME SELF-CARE Discharge Problem: Injury of foot Instructions: Foot Sprain (ED) Condition: Good Pt referred to PMD for follow-up: Yes IPMP verified?: No Additional Instructions: cataflam 50mg tid prn prin #21---ice--use crtuches //f/u with pcp Allergies/Adverse Reactions: Allergies amoxicillin [Amoxicillin] Adverse Reaction (Verified 11/22/17 22:34) Hives Home Medications: Ambulatory Orders 1 [No Reported Medications] 11/22/17 Disposition Discussed With: Patient, Family
--- NOTE | 2017-11-22 23:52 | CT ---
EXAM: CT scan right ankle HISTORY: Injury COMPARISON: Three-view right ankle FINDINGS: But the contiguous axial images obtained through the ankle without contrast utilizing 2-mm collimation. Sagittal and coronal reconstructions were imaged and reviewed.. There is no acute fra cture or bony abnormality. The surrounding soft tissues unremarkable. IMPRESSION: No acute findings
--- NOTE | 2017-11-22 23:58 | CT ---
EXAM: CT scan right foot HISTORY: Trauma abdomen COMPARISON: Plain film exam performed the same day FINDINGS: Contiguous axial images were obtained through the foot without contrast utilizing 2-mm col limation. Sagittal and coronal reconstructions were imaged and reviewed.. There is no acute fractur e, dislocation or bony erosion. The surrounding soft tissues are unremarkable. IMPRESSION: No acute findings.
[2017-11-22] MEDS ORDERED: MOTRIN PO STA (23:59)
--- NOTE | 2017-11-22 23:59 | DI ---
EXAM: Right ankle three views HISTORY: Injury COMPARISON: None. FINDINGS: The ankle mortise and talar dome are intact. There is no acute fracture or dislocation. The surrounding soft tissues are unremarkable. IMPRESSION: No acute findings.
--- NOTE | 2017-11-23 | DI ---
EXAM: Right foot three views HISTORY: Injury COMPARISON: None. FINDINGS: There is no acute fracture, dislocation or bony erosion.. The surrounding soft tissues ar e unremarkable. IMPRESSION: No acute findings
== END 2017-11-23 00:20 | disposition home or self-care (01) ==
LOC: ED 22:27
DX: S99.921A Unspecified injury of right foot, initial encounter (principal); F17.210 Nicotine dependence, cigarettes, uncomplicated; W22.8XXA Striking against or struck by other objects, initial encounter
CPT/HCPCS: 99283

== ENCOUNTER 2018-04-28 09:31 | Emergency (ER) ==
[2018-04-28 09:45] VITALS: BP 164/94; TEMP 98.4; BMI 21.9
--- NOTE | 2018-04-28 10:06 | ED.PDOC ---
General ED Provider: Dr. MERRY JOHNS Chief Complaint: Behavioral Complaint Mode of Arrival: Walk-In Information Source: Patient, Police Sepsis Protocol: For patient's 13 years and over: Temp is 96.8 and below OR 101 and greater Pulse >90 BPM Resp >20/minute Acutely Altered Mental Status Are patient's symptoms suggestive of a new infection, such as: -Pneumonia -Skin, Soft Tissue -Endocarditis -UTI -Bone, Joint Infection -Implantable Device -Acute Abdominal Infection -Wound Infection -Meningitis -Blood Stream Catheter Infection -Unknown Past Medical History - Past Medical History Previously Healthy: Yes Endocrine: Reports: None Cardiovascular: Reports: None Respiratory: Reports: Asthma Hematological: Reports: None Gastrointestinal: Reports: None Genitourinary: Reports: None Neuro/Psych: Reports: Seizure, Anxiety, Depression, Bipolar Disorder, Schizophrenia (I'm doing better without the medications from Dr Cohen) Musculoskeletal: Reports: None Cancer: Reports: None Other Pertinent Past Medical History: Alcohol abuse - Surgical History General Surgical History: Reports: Unknown - Family History Family History: Reports: Unknown - Social History Smoking Status: Current every day smoker, Heavy tobacco smoker Hx Substance Use: Yes ("WEED, PILLS, METH") Alcohol Screening: None Course - Course Vital Signs: Temp Pulse Resp BP Pulse Ox 04/28/18 09:32 98.4 F 109 H 18 164/94 H 96 Departure - Departure Allergies/Adverse Reactions: Allergies amoxicillin [Amoxicillin] Adverse Reaction (Verified 04/28/18 09:46) Hives Home Medications: Ambulatory Orders 1 [No Reported Medications] 11/22/17
--- NOTE | 2018-04-28 16:39 | ED.PDOC ---
General ED Provider: Dr. MERRY JOHNS Chief Complaint: Behavioral Complaint Stated Complaint: suicidal ideation Time Seen by Physician: 09:45 (stated virginiater an argument to his mother he is going to kill himself) Mode of Arrival: Walk-In Information Source: Patient, Police Referred to ED by: Other (pt stated he has does this to calm his mother ) Nursing and Triage Documentation Reviewed and Agree: Yes Does patient meet sepsis criteria?: No System Inflammatory Response Syndrome: Not Applicable Sepsis Protocol: For patient's 13 years and over: Temp is 96.8 and below OR 101 and greater Pulse >90 BPM Resp >20/minute Acutely Altered Mental Status Are patient's symptoms suggestive of a new infection, such as: -Pneumonia -Skin, Soft Tissue -Endocarditis -UTI -Bone, Joint Infection -Implantable Device -Acute Abdominal Infection -Wound Infection -Meningitis -Blood Stream Catheter Infection -Unknown Psychological Complaint Exam - Psychiatric Complaint/Exam Patient Complains Of: Present: Depression, Suicidal thoughts Onset/Duration: chronic issue voiced it again today Symptoms Are: Still present Timing: Intermittent Initial Severity: Moderate Current Severity: Moderate Character: Present: Depressed, Anxious, Frustrated Aggravating: Reports: Recent stress (arguments with family) Associated Signs And Symptoms: Reports: Sleep disturbance, Appetite change. Denies: Hostile, Confused, Hallucinating, Paranoid behavior Completed Suicide Risk Factors: None Patient Accompanied By: Police Patient In Custody Of Police: Yes (police) Social Withdrawal Present: Yes Social Isolation Present: Yes Prior Suicide Attempt: Yes Injury From Prior Suicide Attempt: No Related Surgical History: Reports: None Patient Uncooperative For Exam: No Mood: Present: Depressed, Anxious Appearance: Present: Clean Thought Process: Present: Logical Insight: Present: Limited Memory: Intact Judgement: Impaired Danger To Others: No Patient Medically Stable For: Psych evaluation Differential Diagnoses: Depression, Suicidal Ideation Review of Systems - Review Of Systems Constitutional: Reports: No symptoms Eyes: Reports: No symptoms Ears, Nose, Mouth, Throat: Reports: No symptoms Respiratory: Reports: No symptoms Cardiac: Reports: No symptoms GI: Reports: No symptoms : Reports: No symptoms Musculoskeletal: Reports: No symptoms Skin: Reports: No symptoms Neurological: Reports: Emotional problems Endocrine: Reports: No symptoms Hematologic/Lymphatic: Reports: No symptoms All Other Systems: Reviewed and Negative Past Medical History - Past Medical History Previously Healthy: Yes Endocrine: Reports: None Cardiovascular: Reports: None Respiratory: Reports: Asthma Hematological: Reports: None Gastrointestinal: Reports: None Genitourinary: Reports: None Neuro/Psych: Reports: Seizure, Anxiety, Depression, Bipolar Disorder, Schizophrenia (I'm doing better without the medications from Dr Cohen) Musculoskeletal: Reports: None Cancer: Reports: None Other Pertinent Past Medical History: Alcohol abuse - Surgical History General Surgical History: Reports: Unknown - Family History Family History: Reports: Unknown - Social History Smoking Status: Current every day smoker (has 4 kids 2 step children [address] said the pt ), Heavy tobacco smoker Hx Substance Use: Yes ("WEED, PILLS, METH") Alcohol Screening: None Physical Exam - Physical Exam Appearance: Well-appearing, No pain distress, Well-nourished Eyes: CHAU, EOMI, Conjunctiva clear ENT: Ears normal, Nose normal, Oropharynx normal Respiratory: Airway patent, Breath sounds clear, Breath sounds equal, Respirations nonlabored Cardiovascular: RRR, Pulses normal, No rub, No murmur GI/: Soft, Nontender, No masses, Bowel sounds normal, No Organomegaly Musculoskeletal: Normal strength, ROM intact, No edema, No calf tenderness Skin: Warm, Dry, Normal color Neurological: Sensation intact, Motor intact, Reflexes intact, Cranial nerves intact, Alert, Oriented Psychiatric: Affect appropriate, Mood appropriate Critical Care Note - Critical Care Note Total Time (mins): 0 Course - Course Hematology/Chemistry: 04/28/18 10:10 04/28/18 10:10 Orders, Labs, Meds: Lab Review 04/28/18 04/28/18 04/28/18 10:10 10:10 11:20 WBC 8.99 RBC 5.33 Hgb 14.7 Hct 44.3 MCV 83.1 MCH 27.6 MCHC 33.2 RDW Coeff of Rian 12.8 Plt Count 253 Immature Gran % (Auto) 0.4 Neut % (Auto) 60.1 Lymph % (Auto) 29.7 [place] % (Auto) 8.0 Eos % (Auto) 1.4 Baso % (Auto) 0.4 Immature Gran # (Auto) 0.0 Neut # (Auto) 5.4 Lymph # (Auto) 2.7 [place] # (Auto) 0.7 Eos # (Auto) 0.1 Baso # (Auto) 0.0 Sodium 138.2 Potassium 4.56 Chloride 101.0 Carbon Dioxide 33.4 H Anion Gap 8.36 BUN 9.0 Creatinine 0.94 Estimated GFR (MDRD) 98.00 BUN/Creatinine Ratio 9.57 Glucose 117.3 H Calcium 9.32 Total Bilirubin 0.48 AST 29.4 ALT 18.2 Alkaline Phosphatase 75.2 Total Protein 7.24 Albumin 4.36 Globulin 2.88 Albumin/Globulin Ratio 1.51 Urine Color Urine Clarity Urine pH Ur Specific [place] Urine Protein Urine Glucose (UA) Urine Ketones Urine Blood Urine Nitrite Urine Bilirubin Urine Urobilinogen Ur Leukocyte Esterase Salicylate Level mg/dL < 1.00 Urine Opiates Screen Negative Ur Oxycodone Screen Negative Urine Methadone Screen Negative Ur Propoxyphene Screen Negative Acetaminophen < 10.0 L Ur Barbiturates Screen Negative U Tricyclic Antidepress Negative Ur Phencyclidine Scrn Negative Ur Amphetamine Screen Positive U Methamphetamines Scrn Positive U Benzodiazepines Scrn Positive Urine Cocaine Screen Negative U Cannabinoids Screen Positive Plasma/Serum Alcohol < 10.0 04/28/18 11:20 WBC RBC Hgb Hct MCV MCH MCHC RDW Coeff of Rian Plt Count Immature Gran % (Auto) Neut % (Auto) Lymph % (Auto) [place] % (Auto) Eos % (Auto) Baso % (Auto) Immature Gran # (Auto) Neut # (Auto) Lymph # (Auto) [place] # (Auto) Eos # (Auto) Baso # (Auto) Sodium Potassium Chloride Carbon Dioxide Anion Gap BUN Creatinine Estimated GFR (MDRD) BUN/Creatinine Ratio Glucose Calcium Total Bilirubin AST ALT Alkaline Phosphatase Total Protein Albumin Globulin Albumin/Globulin Ratio Urine Color Yellow Urine Clarity Clear Urine pH 7.0 Ur Specific [place] 1.010 Urine Protein Negative Urine Glucose (UA) Negative Urine Ketones Negative Urine Blood Negative Urine Nitrite Negative Urine Bilirubin Negative Urine Urobilinogen 0.2 Ur Leukocyte Esterase Negative Salicylate Level mg/dL Urine Opiates Screen Ur Oxycodone Screen Urine Methadone Screen Ur Propoxyphene Screen Acetaminophen Ur Barbiturates Screen U Tricyclic Antidepress Ur Phencyclidine Scrn Ur Amphetamine Screen U Methamphetamines Scrn U Benzodiazepines Scrn Urine Cocaine Screen U Cannabinoids Screen Plasma/Serum Alcohol Orders Category Date Time Status EKG-(ED ONLY) Stat CARDIO 04/28/18 10:05 Completed ACETAMINOPHEN Stat LAB 04/28/18 10:10 Completed BLOOD ALCOHOL Stat LAB 04/28/18 10:10 Completed CBC W/ AUTO DIFF Stat LAB 04/28/18 10:10 Completed COMPREHENSIVE METABOLIC PANEL Stat LAB 04/28/18 10:10 Completed DRUG SCREEN, URINE, RAPID Stat LAB 04/28/18 11:20 Completed FLU A/B MOLECULAR Stat LAB 04/28/18 16:40 Ordered SALICYLATE Stat LAB 04/28/18 10:10 Completed URINALYSIS C & S IF INDICATED Stat LAB 04/28/18 11:20 Completed Vital Signs: Temp Pulse Resp BP Pulse Ox 04/28/18 09:32 98.4 F 109 H 18 164/94 H 96 Departure - Departure Time of Disposition: 19:00 Disposition: TSF SHORT-TRM HOSP Discharge Problem: Problem behavior, Suicidal ideation, Medical clearance for psychiatric admission, Methamphetamine abuse Instructions: Help Prevent Suicide (ED) Condition: Good Pt referred to PMD for follow-up: Yes IPMP verified?: No Allergies/Adverse Reactions: Allergies amoxicillin [Amoxicillin] Adverse Reaction (Verified 04/28/18 09:46) Hives Home Medications: Ambulatory Orders 1 [No Reported Medications] 11/22/17
[2018-04-28] MEDS ORDERED: NICODERM 14 MG TD STA (18:03)
== END 2018-04-28 19:40 | disposition short-term general hospital (02) ==
LOC: ED 09:31
DX: R45.851 Suicidal ideations (principal); F15.10 Other stimulant abuse, uncomplicated; F69 Unspecified disorder of adult personality and behavior; F17.210 Nicotine dependence, cigarettes, uncomplicated
CPT/HCPCS: 36415; 80053; 80306; 80307; 81001; 85025; 87502; 93005; 93010; 99285

== ENCOUNTER 2018-04-28 19:46 | Outpatient (CLI) ==
[2018-04-28 09:45] VITALS: BMI 21.9
== END 2018-04-28 22:10 | disposition short-term general hospital (02) ==
LOC: AMBL 19:46
PROVIDERS: ATTEND Family Medicine
DX: R45.851 Suicidal ideations (principal)

== ENCOUNTER 2018-07-27 13:56 | Emergency (ER) ==
[2018-07-27 13:58] VITALS: TEMP 98.9; BMI 27.6
--- NOTE | 2018-07-27 14:16 | ED.PDOC ---
General ED Provider: Dr. ISAAC KHAN Chief Complaint: Knee Pain/Injury Stated Complaint: Lt Knee pain. Was running yesterday and felt pain in the lt knee. Did not fall. Now difficult with ambulation. Pain Outer posterior aspect. Time Seen by Physician: 14:15 Mode of Arrival: Walk-In Information Source: Patient Exam Limitations: No limitations Nursing and Triage Documentation Reviewed and Agree: Yes Does patient meet sepsis criteria?: No If yes, has appropriate treatment been initiated?: No System Inflammatory Response Syndrome: Not Applicable Sepsis Protocol: For patient's 13 years and over: Temp is 96.8 and below OR 101 and greater Pulse >90 BPM Resp >20/minute Acutely Altered Mental Status Are patient's symptoms suggestive of a new infection, such as: -Pneumonia -Skin, Soft Tissue -Endocarditis -UTI -Bone, Joint Infection -Implantable Device -Acute Abdominal Infection -Wound Infection -Meningitis -Blood Stream Catheter Infection -Unknown Musculoskeletal Complaint Exam - Knee Pain Complaint/Exam Mechanism of Injury: Reports: Trauma Onset/Duration: 2 d Symptoms Are: Still present Onset of Pain: Reports: Immediate Initial Severity: Mild Current Severity: Moderate Location: Reports: Discrete Character: Reports: Aching, Stiffness Alleviating: Reports: Rest, Position Aggravating: Reports: Movement, Weight bearing Associated Signs and Symptoms: Denies: Swelling, Redness, Bruising, Fever, Weakness, Numbness, Tingling Able to Bear Weight: Yes Related History: Denies: Similar episode Septic Arthritis Risk Factors: Reports: None Gout Risk Factors: Reports: None Related Surgical History: Reports: Right Knee Knee Findings: Present: Tenderness (posterior lateral aspect , Minimal edema). Absent: Other joint pain, Foreign body, Limited range of motion, Effusion Tenderness: Present: Tibial Tuberosity Marck Test Positive: No Shira Test Positive: No Limited Range of Motion: Absent: Active, Passive, Flexion, Extension, Patellar apprehension Differential Diagnoses: Strain Review of Systems - Review Of Systems Constitutional: Reports: No symptoms Eyes: Reports: No symptoms Ears, Nose, Mouth, Throat: Reports: No symptoms Respiratory: Reports: No symptoms Cardiac: Reports: No symptoms GI: Reports: No symptoms : Reports: No symptoms Musculoskeletal: Reports: Joint pain, Joint swelling, Muscle stiffness Skin: Reports: No symptoms Neurological: Reports: No symptoms Endocrine: Reports: No symptoms Hematologic/Lymphatic: Reports: No symptoms All Other Systems: Reviewed and Negative Past Medical History - Past Medical History Previously Healthy: Yes Endocrine: Reports: None Cardiovascular: Reports: None Respiratory: Reports: Asthma Hematological: Reports: None Gastrointestinal: Reports: None Genitourinary: Reports: None Neuro/Psych: Reports: Seizure, Anxiety, Depression, Bipolar Disorder, Schizophrenia (I'm doing better without the medications from Dr Cohen) Musculoskeletal: Reports: None Cancer: Reports: None Other Pertinent Past Medical History: Alcohol abuse - Surgical History General Surgical History: Reports: Unknown - Family History Family History: Reports: Unknown - Social History Smoking Status: Current every day smoker, Heavy tobacco smoker Hx Substance Use: Yes ("WEED, PILLS, METH") Alcohol Screening: None Physical Exam - Physical Exam Appearance: Well-appearing, No pain distress, Well-nourished Eyes: CHAU, EOMI, Conjunctiva clear ENT: Ears normal, Nose normal, Oropharynx normal Respiratory: Airway patent, Breath sounds clear, Breath sounds equal, Respirations nonlabored Cardiovascular: RRR, Pulses normal, No rub, No murmur GI/: Soft, Nontender, No masses, Bowel sounds normal, No Organomegaly Musculoskeletal: Normal strength, ROM intact, No calf tenderness Skin: Warm, Dry, Normal color Neurological: Sensation intact, Motor intact, Reflexes intact, Cranial nerves intact, Alert, Oriented Psychiatric: Affect appropriate, Mood appropriate Interpretation - Radiology Interpretation Radiology Interpretation By: Radiologist Radiology Results: No acute changes (Lt Knee-no abnormalities) Re-Evaluation - Re-Evaluation Time of Re-Evaluation: 15:20 Status: Improved Vital Signs Stable: Yes Pain Level: 1-2/10 with movement-much better after Toradol Appearance: NAD Lungs: Clear Skin: Warm and Dry Neuro: Alert and Oriented X3 CV: RRR Critical Care Note - Critical Care Note Total Time (mins): 0 Course - Course Orders, Labs, Meds: Orders Category Date Time Status CRUTCHES [ED CRUTCHES] .ONCE EMERGENCY 07/27/18 15:27 Inactive ED SPLINT APPLICATION .ONCE EMERGENCY 07/27/18 15:27 Inactive Ketorolac Tromethamine [Toradol] MEDS 07/27/18 14:20 Discontinued 30 mg IM ONCE STA KNEE, LEFT 4 VIEWS Stat RADS 07/27/18 14:18 Completed Medications Discontinued Medications Generic Name Dose Route Start Last Admin Trade Name Freq PRN Reason Stop Dose Admin Ketorolac Tromethamine 30 mg 02/14/19 14:20 07/27/18 14:32 Toradol IM 07/27/18 14:21 30 mg ONCE STA Administration Vital Signs: Temp Pulse Resp BP Pulse Ox 07/27/18 13:56 98.9 F 112 H 16 170/82 H 98 Departure - Departure Time of Disposition: 15:20 Disposition: HOME SELF-CARE Discharge Problem: Strain of knee and leg, left Instructions: Knee Pain (ED), Knee Immobilizer (ED) Condition: Fair Pt referred to PMD for follow-up: Yes IPMP verified?: No Additional Instructions: Follow directions /GRETEL Wrap Defers using immobilizer or crutches as he's riding a bicycle Take Meds as directed Follow up PCP to have [id number] See PCP Prescriptions: Ketorolac Tromethamine [Toradol] 10 mg PO Q6H #20 tablet Allergies/Adverse Reactions: Allergies amoxicillin [Amoxicillin] Adverse Reaction (Verified 07/27/18 13:59) Hives Home Medications: Ambulatory Orders Ketorolac Tromethamine [Toradol] 10 mg PO Q6H #20 tablet 07/27/18 Disposition Discussed With: Patient
[2018-07-27] MEDS ORDERED: TORADOL IM STA (14:20)
--- NOTE | 2018-07-27 14:45 | DI ---
EXAM: Four views of the left knee. History: Left knee pain and swelling. Findings: No acute fracture or dislocation. No abnormal calcifications or radiopaque foreign bodies . Joint spaces are preserved. Impression: Unremarkable exam.
[2018-07-27 15:47] VITALS: BP 136/80
== END 2018-07-27 16:03 | disposition home or self-care (01) ==
LOC: ED 13:56
DX: S86.912A Strain of unspecified muscle(s) and tendon(s) at lower leg level, left leg, initial encounter (principal); X50.1XXA Overexertion from prolonged static or awkward postures, initial encounter; F17.210 Nicotine dependence, cigarettes, uncomplicated
CPT/HCPCS: 96372; 99283